=== PATIENT | female | born 1970 ===

== ENCOUNTER 2020-06-15 06:49 | Inpatient (IN) | payer OTHER ==
[~2020-06-15] VITALS: Ht 157.5 cm; Wt 49.9 kg
[2020-06-15] MEDS ORDERED: DEXAMETHASONE SOD PHOSPHATE 10MG/ML 1ML VIAL ONE (07:38)
[2020-06-15] MEDS ORDERED: ACETAMINOPHEN EXTRA STRENGTH 500 MG TABLET ONE (07:38)
[2020-06-15] MEDS ORDERED: ZIPRASIDONE MESYLATE 20 MG/VIAL IM ONE ×3 (08:01→22:01)
[2020-06-15 08:46] LABS: BASOPHILS % (AUTO) 0.5 % (0.0-5.0); EOSINOPHILS % (AUTO) 0.8 % (0.0-8.0); HEMATOCRIT 47.2 % (36-48); LYMPHOCYTES % (AUTO) 16.3 % (21.0-51.0); MEAN CORPUSCULAR HEMOGLOBIN 30.4 pg (27.0-33.0); MEAN CORPUSCULAR HGB CONC 33.1 g/dL (32.0-36.0); MONOCYTES % (AUTO) 7.2 % (3.0-13.0); NEUTROPHILS % (AUTO) 74.9 % (40.0-77.0); PLATELET COUNT (AUTO) 238 K/uL (130-400); RED BLOOD CELL COUNT(AUTO) 5.13 MIL/uL (4.00-5.50); RED CELL DISTRIBUTION WIDTH 12.5 % (11.0-15.5); WHITE BLOOD COUNT (AUTO) 13.7 K/uL (4.8-10.8)
[2020-06-15 09:08] LABS: CREATININE 0.8 mg/dL (0.5-1.5); POTASSIUM 4.2 mmol/L (3.5-5.1)
[2020-06-15] MEDS ORDERED: SODIUM CHLORIDE 0.9% 1000ML 1,000 ML IV ONE (09:11)
[2020-06-15 09:23] LABS: B-TYPE NATRIURETIC PEPTIDE 60 pg/mL (0-100)
[2020-06-15] MEDS ORDERED: CEFTRIAXONE SODIUM 2 GM VIAL ONE (09:26)
[2020-06-15] MEDS ORDERED: ERGOCALCIFEROL (VITAMIN D2) 50,000 UNIT CAPSULE PO ONE (15:15)
[2020-06-15] MEDS ORDERED: ALBUTEROL INHALER 90MCG/INH IH PRN (15:15)
[2020-06-15] MEDS ORDERED: BENZONATATE 100 MG CAPSULE PO PRN (15:15)
[2020-06-15] MEDS ORDERED: IOHEXOL-350 75 ML VIAL IV ONE (20:10)
[2020-06-15] MEDS: DOXYCYCLINE HYCLATE 100 MG TABLET PO SCH (20:42)
[2020-06-15] MEDS: ZIPRASIDONE MESYLATE 20 MG/VIAL IM PRN (22:22)
--- NOTE | 2020-06-16 05:47 | NUR ---
ASSESSMENT PATIENT IS ALERT AND ORIENTED TIMES 4. NO COMPLAINTS OF ANY PAIN. PATIENT IS SATING 100% ON 2 LITERS NASAL CANULA. PATIENT HAS A SITTER AT BEDSIDE. SHE CAME UP TO ROOM 206 AND WAS UPSET AND SWEARING WANTING A CIGARETTE. SHE REFUSED TO WEAR TELE. REFUSED LAB DRAW. i GAVE HER A SHOT OF GEODON AROUND 2200. PATIENT REFUSED MIDNIGHT VITALS BUT SOON FELL ASLEEP AFTERWARDS AND HAS BEEN ASLEEP SINCE. LAB DID DRAW BLOOD WORK WHILE THE PATIENT WAS ASLEEP. VITALS ARE STABLE WILL CONTINUE TO MONITOR.
[2020-06-16] MEDS: ZIPRASIDONE MESYLATE 20 MG/VIAL IM PRN (06:03)
--- NOTE | 2020-06-16 06:08 | NUR ---
MORNING BEHAVIOR PATIENT REFUSED TO ALLOW LABS TO BE DRAWN. SHE WANTED TO GO AND SMOKE. SHE WAS REMOVING HER IV, STARTED SAYING SHE WAS GOING TO KILL EVERYBODY THAT CAME IN THE ROOM. WAS GIVEN ANOTHER DOSE OF GEODON THIS MORNING
[2020-06-16] MEDS: ASCORBIC ACID 500 MG TAB PO SCH (09:00)
[2020-06-16] MEDS: ZINC SULFATE 220 CAPSULE PO SCH (09:00)
[2020-06-16] MEDS: ENOXAPARIN SODIUM 40 MG/0.4 ML SYRINGE SQ SCH (09:00)
[2020-06-16] MEDS: PREDNISONE 20 MG TABLET PO SCH (09:00)
[2020-06-16] MEDS: DOXYCYCLINE HYCLATE 100 MG TABLET PO SCH ×2 (09:00→21:00)
--- NOTE | 2020-06-16 09:26 | NUR ---
Patient refusing all morning meds. SUPERVISOR TELEVISION CHASSIS REPAIR (Lelo) with primary team made aware.
--- NOTE | 2020-06-16 11:57 | NUR ---
Patient transferred to [facility] due to negative COVID status. Report called to Laura. Patient escorted to unit by physician gynecologistValdez HOFFMAN and nurses Bailey stein
--- NOTE | 2020-06-16 14:37 | NUR ---
CM NOTE/IA UNSUCCESSFUL TRIED TO INITIATE CM ASSESSMENT, PER PRIMARY NURSE, PATIENT VERY UPSET AT THE MOMENT, TO TRY LATER. PATIENT HAS HISTORY OF PSYCH BEHAVIOR AND WAS TRANSFERRED FROM [facility]. NOTED NO NEXT OF KIN ON FACESHEET, ONLY A PHONE NUMBER, INFORMED NURSE TO OBTAIN PHONE NUMBER OF FAMILY MEMBER IF SOMEONE CALLS FOR PATIENT. CM TO FOLLOW UP FOR IA.
--- NOTE | 2020-06-16 15:00 | NUR ---
PT REFUSED PHYSICAL ASSESSMENT, LABS, VITALS, AND MEDICATIONS. REFUSAL FORM SIGNED BY PT AND IN CHART. CHARGE NURSE DALTON EPPERSON AWARE. PT IN NO APPARENT DISTRESS. STATES NO PAIN. WILL CONTINUE TO MONITOR. 1 TO 1 SITTER AT BEDSIDE.
--- NOTE | 2020-06-16 21:19 | NUR ---
Patient refusing to be assessed, refusing medication, has been like that all day. Patient also refused to have vital signs taken. Will continue to monitor closely. One to one sitter.
--- NOTE | 2020-06-17 03:45 | NUR ---
0245: Patient up ambulating in room, noted to be having SOB, denied any. Patient encouraged to please sit in bed with HOB elevated. Patient did but stated " you all just want to hurt me, not help me"!. Patient encouraged to have 02 in use, refused. Patient noted to be less out of breath when in bed. 0345: According to sitter patient has been in bed sitting, no change in status. Still refusing VItal signs.
--- NOTE | 2020-06-17 07:54 | NUR ---
pt sitting up in the edge of the bed , talking loudy , get upset with any one . who . approach her, unable to assess her assessment. due hx of mental unbalance pt does have a staff sitter close to her, for monitoring care. . no assessment . pt is on room air , color pink , noted no resp distress .
[2020-06-17] MEDS: PREDNISONE 20 MG TABLET PO SCH (09:00)
[2020-06-17] MEDS: DOXYCYCLINE HYCLATE 100 MG TABLET PO SCH ×2 (09:00→19:41)
[2020-06-17] MEDS: ZINC SULFATE 220 CAPSULE PO SCH (09:00)
[2020-06-17] MEDS: ASCORBIC ACID 500 MG TAB PO SCH (09:00)
[2020-06-17] MEDS: ENOXAPARIN SODIUM 40 MG/0.4 ML SYRINGE SQ SCH (09:00)
--- NOTE | 2020-06-17 11:50 | NUR ---
DCP CM met w/pt currently unable to answer questions, verbally agressive, has 1:1 at bedside. Obtained info from medical records. Unable to locate family. CM called number on facesheet, it is a fax#. SW made aware. Pt is independent prior to admission. Will reassess once pt more stable. DCP to home vs psych facility. CM to cont to follow up. Addendum: 06/18/20 at 1153 by HUSSEIN TURNER LVN CM Amended: Links added.
--- NOTE | 2020-06-17 16:30 | NUR ---
REQUESTING MEDICAL RECORDS FROM THE DATA INFORMATION PT HAS IN THE CHART [facility] HERE IN [place] WITH A RESPOND OF NO PT INFORMATION UNDER THEIR CARE MAURO LOPEZ PER PT DATA RECORDED . REQUEST FAX TO THERE , FACILITY. NO ANSWER
--- NOTE | 2020-06-17 17:30 | NUR ---
DR. MCCLELLAN HERE , AND TRY TO SPEAK WITH PT. PT VOICING GET OUT OF MY ROOM . WAS NOTE ABLE TO HELP HER, RECOMMENDATION F OR SOME MEDICATION . IN THE PHYSICAIN PROGRESS NOTES.
--- NOTE | 2020-06-17 20:00 | NUR ---
PM ASSESSMENT PATIENT ASSESSMENT LIMITED DUE TO PATIENT NOT WILLING TO COOPERATE AND REFUSING TO BE TOUCHED. SHE IS UNWILLING TO ANSWER ANY QUESTIONS,UNWILLING TO HAVE ANY VITAL SIGNS TAKEN OR LABS DRAWN. DOCTORS ARE AWARE OF PATIENT REFUSALS AND STATE TO DO THE BEST WE CAN. PATIENT IS ON A ONE TO ONE SITTER FOR SAFETY.
[2020-06-18] MEDS: PREDNISONE 20 MG TABLET PO SCH (08:40)
[2020-06-18] MEDS: ASCORBIC ACID 500 MG TAB PO SCH (08:40)
[2020-06-18] MEDS: DOXYCYCLINE HYCLATE 100 MG TABLET PO SCH (08:40)
[2020-06-18] MEDS: ENOXAPARIN SODIUM 40 MG/0.4 ML SYRINGE SQ SCH (08:41)
[2020-06-18] MEDS: ZINC SULFATE 220 CAPSULE PO SCH (08:41)
--- NOTE | 2020-06-18 08:43 | NUR ---
PATIENT REFUSED ASSESSMENT, MEDICATIONS, AND DIAPER CHANGE. PATIENT IS LAYING IN BED AND DOESNT LET ANYONE HER NEAR HER. YELLING "GET AWAY FROM ME DON'T TOUCH ME" COMPLETELY REFUSING PATIENT CARE. WILL TRY AGAIN LATER.
--- NOTE | 2020-06-18 10:30 | NUR ---
PATIENT WANTS TO LEAVE AGAINS MEDICAL ADVICE. PATIENT IS IN WHAT APPEARS TO BE, A PSYCHOTIC STATE. SHE KNOWS WHERE SHE IS AT AND STATES THAT SHE WANTS TO GO BACK TO [place]. ACCORDING TO REYNOLD, FAMILY RESOURCE MANAGEMENT PROFESSOR DIRECTOR AND DANNA TURNER, FAMILY RESOURCE MANAGEMENT PROFESSOR. PATIENT IS NOT ON A SECTION OR SUICIDAL AND SHE CAN GO IF SHE WANTS TO. PATIENT LEFT THE HOSPITAL. SUKHDEV CHARGE NURSE AT SIDE. PATIENT IS SITTING OUTSIDE THE HOSPITAL, ASKING EVERYONE FOR A RIDE. TRIED TO CONVINCE PATIENT TO COME BACK TO HER ROOM BUT SHE REFUSED AND BECAME AGGRESSIVE.
== END 2020-06-18 11:25 | disposition left against medical advice (07) | DRG 189 ==
LOC: EDH 06:49 → EDHIP 06:50 → 4BH 20:16 → 3CH 06-16 12:09 → 3DH 06-17 16:34
PROVIDERS: ADMIT Hospitalist; ATTEND Hospitalist
DX: J96.01 Acute respiratory failure with hypoxia (principal); Z03.818 Encounter for observation for suspected exposure to other biological agents ruled out; D72.829 Elevated white blood cell count, unspecified; F17.210 Nicotine dependence, cigarettes, uncomplicated; F20.9 Schizophrenia, unspecified; J43.9 Emphysema, unspecified; Z91.19 Patient's noncompliance with other medical treatment and regimen; R91.8 Other nonspecific abnormal finding of lung field; Z53.29 Procedure and treatment not carried out because of patient's decision for other reasons
CPT/HCPCS: 36415; 71045; 71270; 80048; 82550; 82728; 83605; 83880; 84484; 85025; 85378; 87040; 87426; 93005; G0378; J0696; J1100; J3486; J7030; Q9967; U0003